=== PATIENT | female | born 1930 | race Caucasian/White ===

== ENCOUNTER 2016-09-11 18:53 | Emergency (ER) | payer OTHER, BC ==
[~2016-09-11] VITALS: Ht 172.7 cm; Wt 85.9 kg
[~2016-09-11 18:53] MED LIST: ALBU1AER9 INH; ASCO500T16 PO; MULT-506 PO; PANT40TA PO
[2016-09-11 19:07] VITALS: TEMP 36.6; Ht 172.7 cm; Wt 85.9 kg
[2016-09-11] MEDS ORDERED: ALUMINUM/MAGNESIUM/SIMETH (MAALOX MAX) 30 ML UDC PO STA (19:42)
[2016-09-11] MEDS ORDERED: LOSARTAN POTASSIUM 50 MG TAB PO ONE (19:45)
--- NOTE | 2016-09-11 19:52 | EMERGENCY ROOM VISIT NOTE ---
History Report prepared by Juan: Oksana Hannon Under the Supervision of: Dr. Linden Hale M.D. First contact with patient: 19:35 Chief Complaint: ABDOMINAL PAIN Stated Complaint: ABD PAIN History of Present Illness The patient is a 85 year old female who presents to the Emergency Room with complaints of intermittent abdominal pains for the past few weeks. She notes that she has been belching very often and experiencing abdominal pain that she rates as an 8/10 in severity. Vegetables, such as broccoli and cauliflower, exacerbate her symptoms. The patient saw her PCP 2 weeks ago for these symptoms and was started on Prilosec. She has been taking this medication as prescribed, but states that it is not helping. She has also been taking TUMS and Gas-X. The Gas-X helps slightly. She has been having normal bowel movements. The patient denies vomiting, diarrhea, fever, chills, and urinary symptoms. She notes a history of a bowel rupture. Source of History: patient Onset: a few weeks ago Position: abdomen Symptom Intensity: 8/10 Timing: intermittent Modifying Factors (Worsening): eating (vegetables) Modifying Factors (Relieving): other (Gas-X) Associated Symptoms: + abdominal pain, No chills, No diarrhea, No fevers, No urinary symptoms, No vomiting Note: Pt notes frequent belching. Review of Systems All systems have been listed, reviewed, and are negative other than those previously mentioned. Please see Additional Medical History Sheet. Past Medical & Surgical Medical Problems: (1) Asthma, Unspecified (2) Headache (3) History Of Tobacco Use (4) Hypertension Nos (5) Nosebleed (6) Obstruction of bowel (7) Restless Legs Syndrome Family History Non-pertinent due to advanced age. Social History Smoking Status: Former Smoker Marital Status: Housing Status: lives alone Occupation Status: retired Current/Historical Medications Scheduled Losartan Potassium (Cozaar), 50 MG PO DAILY Omeprazole (Prilosec), 20 MG PO DAILY Scheduled PRN Albuterol (Ventolin Hfa), 2 PUFFS INH Q4 PRN for Shortness of Breath Dicyclomine Hcl (Bentyl), 1 CAP PO QID PRN for abdominal pain Allergies Coded Allergies: Alendronate (Unverified Adverse Reaction, Severe, VERY ILL, 09/11/16) Physical Exam Vital Signs Date Time Temp Pulse Resp B/P Pulse Ox O2 Delivery O2 Flow Rate FiO2 09/12/16 00:26 82 18 193/88 93 Room Air 09/11/16 23:47 81 18 145/76 94 Room Air 09/11/16 23:21 77 09/11/16 22:01 214/107 09/11/16 21:10 80 21 93 09/11/16 21:05 78 19 94 09/11/16 20:35 79 14 93 09/11/16 20:30 234/120 09/11/16 20:28 83 20 92 09/11/16 20:23 82 15 93 09/11/16 20:06 222/123 09/11/16 19:53 19 09/11/16 19:25 91 09/11/16 19:23 90 29 09/11/16 19:18 230/120 09/11/16 19:17 230/120 09/11/16 19:07 36.6 93 18 200/106 95 Room Air Physical Exam GENERAL: Patient awake, alert, oriented x 3. Patient follows commands. Patient does not appear toxic. Patient is adequately hydrated and well- nourished. SKIN: No erythema, pallor, cyanosis or rash HEENT: Normal head, pupils equal, reactive to light and accommodation. Ears normal. Oral cavity and posterior pharynx appear normal. Neck: Without adenopathy, no neck vein distention. LUNGS: Clear to auscultation. No wheezes, no rales, no rhonchi. HEART: No murmurs. No gallops. No rubs ABDOMEN: Nontender, bowel sounds increased, well-healed lower abdominal scar. No masses, no rebound, no hepatomegaly or splenomegaly. EXTREMITIES: No signs of trauma. No pedal or pretibial edema. No calf or thigh tenderness. NEUROLOGIC: Cranial nerves II-XII within normal limits. No gross motor sensory function deficits. Medical Decision & Procedures ER Provider Diagnostic Interpretation: Radiology results as stated below per my review and radiologist interpretation: KUB CLINICAL HISTORY: Generalized abdominal pain. FINDINGS: 2 AP supine abdominal radiographs are correlated with abdominal CT dated 09/02/2014. There are nonspecific mildly distended and gas-filled loops of small bowel. There is no radiographic evidence of high-grade bowel obstruction, as gas and stool are noted throughout the colon. No evidence of intraperitoneal free air is seen on these supine images. There are no abnormal abdominal calcifications. Cholecystectomy clips are identified in the right upper quadrant. Numerous phleboliths are observed in the pelvis. The skeletal structures are osteopenic. Moderate lumbosacral spondylosis is observed. The bony pelvis appears intact. IMPRESSION: 1. There is no radiographic evidence of high-grade bowel obstruction. Gas and stool are noted throughout the colon. 2. There are mildly distended gas-filled loops of small bowel. This is nonspecific, and could represent a nonspecific enteritis. Clinical correlation will be required. Electronically signed by: Duncan Blair M.D. 09/11/2016 9:40 PM Dictated Date/Time: 09/11/2016 9:37 PM Laboratory Results 09/11/16 20:00 Red Blood Count 4.78, Mean Corpuscular Volume 90.8, Mean Corpuscular Hemoglobin 29.3, Mean Corpuscular Hemoglobin Concent 32.3, Mean Platelet Volume 10.6, Neutrophils (%) (Auto) 67.3, Lymphocytes (%) (Auto) 20.7, Monocytes (%) (Auto) 10.7, Eosinophils (%) (Auto) 0.7, Basophils (%) (Auto) 0.2, Neutrophils # (Auto ) 3.63, Lymphocytes # (Auto) 1.12, Monocytes # (Auto) 0.58, Eosinophils # (Auto ) 0.04, Basophils # (Auto) 0.01 09/11/16 20:00 Test 09/11/16 00:00 09/11/16 20:00 Urine Color YELLOW Urine Appearance CLEAR (CLEAR) Urine pH 7.5 (4.5-7.5) Urine Specific [place] 1.010 (1.000-1.030) Urine Protein NEG (NEG) Urine Glucose (UA) NEG (NEG) Urine Ketones NEG (NEG) Urine Occult Blood TRACE (NEG) Urine Nitrite NEG (NEG) Urine Bilirubin NEG (NEG) Urine Urobilinogen POS (NEG) Urine Leukocyte Esterase TRACE (NEG) Urine WBC (Auto) 1-5 /hpf (0-5) Urine RBC (Auto) 5-10 /hpf (0-4) Urine Hyaline Casts (Auto) 0 /lpf (0-5) Urine Epithelial Cells (Auto) 5-10 /lpf (0-5) Urine Bacteria (Auto) NEG (NEG) White Blood Count 5.40 K/uL (4.8-10.8) Red Blood Count 4.78 M/uL (4.2-5.4) Hemoglobin 14.0 g/dL (12.0-16.0) Hematocrit 43.4 % (37-47) Mean Corpuscular Volume 90.8 fL (80-100) Mean Corpuscular Hemoglobin 29.3 pg (25-34) Mean Corpuscular Hemoglobin Concent 32.3 g/dl (32-36) Platelet Count 156 K/uL (130-400) Mean Platelet Volume 10.6 fL (7.4-10.4) Neutrophils (%) (Auto) 67.3 % Lymphocytes (%) (Auto) 20.7 % Monocytes (%) (Auto) 10.7 % Eosinophils (%) (Auto) 0.7 % Basophils (%) (Auto) 0.2 % Neutrophils # (Auto) 3.63 K/uL (1.4-6.5) Lymphocytes # (Auto) 1.12 K/uL (1.2-3.4) Monocytes # (Auto) 0.58 K/uL (0.11-0.59) Eosinophils # (Auto) 0.04 K/uL (0-0.5) Basophils # (Auto) 0.01 K/uL (0-0.2) RDW Standard Deviation 47.7 fL (36.4-46.3) RDW Coefficient of Variation 14.3 % (11.5-14.5) Immature Granulocyte % (Auto) 0.4 % Immature Granulocyte # (Auto) 0.02 K/uL (0.00-0.02) Anion Gap 4.0 mmol/L (3-11) Est Creatinine Clear Calc Drug Dose 63.5 ml/min Estimated GFR () 86.4 Estimated GFR (Non- 74.6 BUN/Creatinine Ratio 16.2 (10-20) Calcium Level 8.9 mg/dl (8.5-10.1) Total Bilirubin 0.6 mg/dl (0.2-1) Aspartate Amino Transf (AST/SGOT) 18 U/L (15-37) Alanine Aminotransferase (ALT/SGPT) 20 U/L (12-78) Alkaline Phosphatase 87 U/L (45-117) Total Protein 7.1 gm/dl (6.4-8.2) Albumin 3.5 gm/dl (3.4-5.0) Globulin 3.6 gm/dl (2.5-4.0) Albumin/Globulin Ratio 1.0 (0.9-2) Laboratory results as stated above per my review. Medications Administered Medications (Trade) Dose Ordered Sig/Bradley Route Start Time Stop Time Status Last Admin Dose Admin Losartan Potassium (coZAAR TAB) 50 mg ONE ONCE PO 09/11/16 19:45 09/11/16 19:48 DC 09/11/16 20:04 50 MG Al Hydrox/Mg Hydrox/Simethicone (Maalox Max Susp) 30 ml NOW STAT PO 09/11/16 19:42 09/11/16 19:48 DC 09/11/16 20:04 30 ML Lorazepam (Ativan Inj) 1 mg NOW STAT IV 09/11/16 22:49 09/11/16 22:52 DC 09/11/16 22:59 1 MG Dicyclomine HCl (Bentyl Tab) 20 mg ONE ONCE PO 09/11/16 23:00 09/11/16 23:01 DC 09/11/16 23:08 20 MG ECG Indication: abdominal pain Rate (beats per minute): 89 Rhythm: normal sinus Findings: no acute ischemic change, no ectopy ED Course 1935: Past medical records reviewed. The patient was evaluated in room B5. A complete history and physical examination was performed. 1941: Maalox Max Susp 30 ml PO 1944: Losartan Potassium 50 mg PO 2240: I reassessed the patient. Her blood pressure is still elevated and she is upset and anxious. 2248: Lorazepam 1 mg IV 0: Bentyl 20 mg PO 2338: Upon reevaluation the patient is groggy after receiving medications. Her BP coming down. Her pulse ox also dropped with the medications and she was placed on NCO2 0031: I reassessed the patient at this time. She is feeling better and resting comfortably. I discussed the results and treatment plan with the patient. I answered all pertaining questions that she had. She expressed understanding and verbalized agreement. The patient will be discharged home. Medical Decision Differential diagnoses includes bowel obstruction, ulcerative colitis, IBS, intestinal spasm. The patient has hyperactive bowel sounds. KUB reveals increased loops of gas but no definite bowel obstruction. The patient has been moving her bowels. Patient also had significant elevation of her blood pressure. She was given her normal losartan which she had not yet taken. Later she was given some Ativan to help decrease her anxiety and blood pressure. Patient was given 20 mg of Bentyl which she will continue at home. Impression Primary Impression: Spasm of bowel Additional Impression: Hypertension Scribe Attestation The scribe's documentation has been prepared under my direction and personally reviewed by me in its entirety. I confirm that the note above accurately reflects all work, treatment, procedures, and medical decision making performed by me. Departure Information Dispostion Home / Self-Care Prescriptions Dicyclomine Hcl (BENTYL) 10 Mg Cap 1 CAP PO QID Y for abdominal pain, #30 CAP 1 Refill Prov: Linden Hale M.D. 09/12/16 Referrals Trace Singleton D.O. (PCP) Forms HOME CARE DOCUMENTATION FORM, IMPORTANT VISIT INFORMATION Patient Instructions My [facility] Additional Instructions 10 mg of Bentyl every 6 hours as needed for abdominal pain. Continue all of your current medications as prescribed. Call your family doctor tomorrow morning for an appointment within the next 5 days. Return here sooner if your abdominal pain gets worse or you begin to vomit. Problem Qualifiers Additional Impression: Hypertension Hypertension type: unspecified secondary hypertension Qualified Codes: I15.9 - Secondary hypertension, unspecified
[2016-09-11 20:14] LABS: BASO % 0.2 %; BASO ABS # 0.01 K/uL (0-0.2); COMPLETE YES; EOS % 0.7 %; HEMATOCRIT 43.4 % (37-47); IG% 0.4 %; LYMPH % 20.7 %; LYMPH ABS # 1.12 K/uL (1.2-3.4); MEAN CELL VOLUME 90.8 fL (80-100); MEAN CORPUSCULAR HEMOGLOBIN 29.3 pg (25-34); MEAN CORPUSCULAR HGB CONC 32.3 g/dl (32-36); MEAN PLATELET VOLUME 10.6 fL (7.4-10.4); MONO % 10.7 %; NEUT % 67.3 %; PLATELET COUNT 156 K/uL (130-400); RED BLOOD COUNT 4.78 M/uL (4.2-5.4)
[2016-09-11 20:34] LABS: BUN/CREATININE RATIO 16.2 (10-20); CALCIUM 8.9 mg/dl (8.5-10.1); CREATININE 0.73 mg/dl (0.60-1.20); POTASSIUM 3.4 mmol/L (3.5-5.1)
[2016-09-11 21:28] LABS: URINE APPEARANCE CLEAR (CLEAR); URINE BILIRUBIN NEG (NEG); URINE COLOR YELLOW; URINE NITRITE NEG (NEG); URINE PH 7.5 (4.5-7.5); UROBILINOGEN POS (NEG); ZZUR CULT IF INDIC CLEAN CATCH NO
[2016-09-11 21:38] LABS: MANUAL MICROSCOPIC REQUIRED? NO; REVIEW REQ? NO
--- NOTE | 2016-09-11 21:42 | DIAGNOSTIC IMAGING REPORT ---
KUB CLINICAL HISTORY: Generalized abdominal pain. FINDINGS: 2 AP supine abdominal radiographs are correlated with abdominal CT dated 09/02/2014. There are nonspecific mildly distended and gas-filled loops of small bowel. There is no radiographic evidence of high-grade bowel obstruction, as gas and stool are noted throughout the colon. No evidence of intraperitoneal free air is seen on these supine images. There are no abnormal abdominal calcifications. Cholecystectomy clips are identified in the right upper quadrant. Numerous phleboliths are observed in the pelvis. The skeletal structures are osteopenic. Moderate lumbosacral spondylosis is observed. The bony pelvis appears intact. IMPRESSION: 1. There is no radiographic evidence of high-grade bowel obstruction. Gas and stool are noted throughout the colon. 2. There are mildly distended gas-filled loops of small bowel. This is nonspecific, and could represent a nonspecific enteritis. Clinical correlation will be required. Electronically signed by: Duncan Blair M.D. 09/11/2016 9:40 PM Dictated Date/Time: 09/11/2016 9:37 PM
[2016-09-11] MEDS ORDERED: LORAZEPAM 2 MG/ML 1 ML VIAL IV STA (22:49)
[2016-09-11] MEDS ORDERED: DICYCLOMINE HCL 20 MG TAB PO ONE (23:00)
[2016-09-12 00:26] VITALS: BP 193/88; PULSE 82; O2SAT 93
[2016-09-12] MEDS ORDERED: DICY10CA55 PO (00:43)
== END 2016-09-12 00:50 | disposition home or self-care (01) ==
LOC: C.EDB 18:54
DX: K59.8 Other specified functional intestinal disorders (principal); I10 Essential (primary) hypertension; K56.60 Unspecified intestinal obstruction; J45.909 Unspecified asthma, uncomplicated; Z87.891 Personal history of nicotine dependence; G25.81 Restless legs syndrome; Z79.899 Other long term (current) drug therapy; Z88.8 Allergy status to other drugs, medicaments and biological substances

== ENCOUNTER 2016-10-11 15:03 | Emergency (ER) | payer OTHER, BC ==
[~2016-10-11] VITALS: Ht 172.7 cm; Wt 84.0 kg
[~2016-10-11 15:03] MED LIST changes: -ALBU1AER9 INH; -ASCO500T16 PO; +DICY10CA55 PO; -MULT-506 PO; -PANT40TA PO
[2016-10-11 15:12] VITALS: TEMP 36.5; Ht 172.7 cm; Wt 84.0 kg
[2016-10-11] MEDS ORDERED: LOSARTAN POTASSIUM 50 MG TAB PO STA (15:25)
[2016-10-11 15:34] VITALS: O2SAT 93
[2016-10-11 15:42] LABS: BASO % 0.2 %; BASO ABS # 0.01 K/uL (0-0.2); COMPLETE YES; EOS % 0.8 %; HEMATOCRIT 45.5 % (37-47); IG% 0.2 %; LYMPH ABS # 0.96 K/uL (1.2-3.4); MEAN CELL VOLUME 91.5 fL (80-100); MEAN CORPUSCULAR HGB CONC 32.7 g/dl (32-36); MEAN PLATELET VOLUME 10.4 fL (7.4-10.4); MONO % 11.7 %; NEUT % 67.1 %; PLATELET COUNT 161 K/uL (130-400); RED BLOOD COUNT 4.97 M/uL (4.2-5.4)
[2016-10-11 15:57] LABS: ALT/SGPT 15 U/L (12-78); AST/SGOT 15 U/L (15-37); BLOOD UREA NITROGEN 13 mg/dl (7-18); BUN/CREATININE RATIO 17.1 (10-20); CALCIUM 8.7 mg/dl (8.5-10.1); CARBON DIOXIDE 32 mmol/L (21-32); CHLORIDE 105 mmol/L (98-107); CREATININE 0.77 mg/dl (0.60-1.20); GLUCOSE 97 mg/dl (70-99); POTASSIUM 3.6 mmol/L (3.5-5.1); SODIUM 143 mmol/L (136-145)
[2016-10-11 16:00] LABS: PARTIAL THROMBOPLASTIN RATIO 1.2; PROTHROMBIN TIME (PATIENT) 10.7 SECONDS (9.0-12.0)
[2016-10-11 16:09] LABS: ALKALINE PHOSPHATASE 88 U/L (45-117)
--- NOTE | 2016-10-11 16:17 | DIAGNOSTIC IMAGING REPORT ---
SINGLE VIEW CHEST CLINICAL HISTORY: Hypertension. FINDINGS: An AP, portable, upright chest radiograph is compared to study dated 01/22/2012. The examination is degraded by portable technique and patient rotation. The heart is mildly enlarged and there is atherosclerotic calcification of the thoracic aorta. The pulmonary vasculature is noncongested. Enlargement the central pulmonary arteries indicates pulmonary hypertension. Emphysema with chronic interstitial thickening/nodularity is similar to previous. No airspace consolidation or large pleural effusion is identified. No pneumothorax is seen. The skeletal structures are osteopenic. Degenerative change is seen in the shoulders and thoracic spine. IMPRESSION: Cardiomegaly and emphysema with no acute cardiopulmonary abnormality. Electronically signed by: Duncan Blair M.D. 10/11/2016 4:16 PM Dictated Date/Time: 10/11/2016 4:15 PM
--- NOTE | 2016-10-11 16:30 | DIAGNOSTIC IMAGING REPORT ---
CT SCAN OF THE BRAIN WITHOUT IV CONTRAST CLINICAL HISTORY: Hypertension. COMPARISON STUDY: CT of the brain dated 01/23/2012. TECHNIQUE: Unenhanced axial CT scan of the brain is performed from the vertex to the skull base. CT DOSE: 537.48 mGy.cm FINDINGS: Brain parenchyma: There are age-related involutional changes noting moderate to advanced confluent subcortical and periventricular microangiopathic change. There is no hemorrhage, mass effect, or evidence of acute territorial ischemia by CT criteria. [place]-white matter is preserved. No extra-axial fluid collection is seen. Ventricles, sulci, cisterns: Prominent secondary to involutional change. Intracranial vasculature: There is atherosclerotic calcification of the cavernous carotid and vertebral arteries. Calvarium: Unremarkable. Sinuses and mastoids: The visualized paranasal sinuses are clear. The mastoid air cells are well pneumatized. Orbits: The bony orbits are grossly intact. IMPRESSION: Senescent changes as above with no hemorrhage, mass effect, or evidence of acute territorial ischemia by CT criteria. Electronically signed by: Duncan Blair M.D. 10/11/2016 4:29 PM Dictated Date/Time: 10/11/2016 4:26 PM
[2016-10-11] MEDS ORDERED: ACET-1311 PO (16:40)
[2016-10-11] MEDS ORDERED: CALC500C3 PO (16:40)
[2016-10-11] MEDS ORDERED: FELO1TAB7 PO (16:40)
[2016-10-11] MEDS ORDERED: LOSA50TA6 PO (16:55)
[2016-10-11 17:34] VITALS: BP 178/87; PULSE 97; O2SAT 93
[2016-10-11] MEDS ORDERED: PRVHFAIN INH (20:19)
[2016-10-11] MEDS ORDERED: PRLSR20 PO (20:19)
--- NOTE | 2016-10-11 23:17 | EMERGENCY ROOM VISIT NOTE ---
History Report prepared by Juan: Ilir Fernandez Under the Supervision of: Dr. Huey Joshi M.D. First contact with patient: 15:21 Chief Complaint: HYPERTENSION Stated Complaint: ELEVATED BP, BLURRY VISION History of Present Illness The patient is a 85 year old female who presents to the Emergency Room with complaints of persistently high blood pressure occurring today. She checked her blood pressure which was 200s/100s. She also complains of bilateral blurry vision occurring for the past week or two. She has a history of hypertension. A few weeks ago, the patient's prescribed medications were changed and her Metoprolol dosage was increased. She also complains of some chronic shortness of breath and denies any changes. She has a history of asthma. The patient currently denies any pain. Pt denies LOC, headache, fevers, chills, diaphoresis, neck pain, chest pain, nausea, vomiting, abdominal pain, back pain, melena, hematochezia, urinary symptoms, numbness, weakness, lymphadenopathy, rash, or other complaints. Source of History: patient Onset: today Position: other (global) Symptom Intensity: No pain currently Quality: other (high blood pressure) Timing: other (persistent) Associated Symptoms: + SOB (chronic) Review of Systems See HPI for pertinent positives and negatives. A total of ten systems were reviewed and were otherwise negative. Past Medical & Surgical Medical Problems: (1) Asthma, Unspecified (2) Headache (3) History Of Tobacco Use (4) Hypertension (5) Hypertension (6) Hypertension (7) Hypertension Nos (8) Nosebleed (9) Nosebleed (10) Obstruction of bowel (11) Restless Legs Syndrome Family History Diabetes mellitus Gallbladder disease Hypertension Social History Smoking Status: Never Smoker Marital Status: Housing Status: lives alone Occupation Status: retired Current/Historical Medications Scheduled Calcium Carbonate (Tums), 500 MG PO PRN Felodipine (Plendil), 2.5 MG PO BID Losartan Potassium (Cozaar), 100 MG PO DAILY Omeprazole (Prilosec), 20 MG PO DAILY Scheduled PRN Acetaminophen (Tylenol), 650 MG PO Q8 PRN for Headache or Pain Albuterol (Ventolin Hfa), 2 PUFFS INH Q4 PRN for Shortness of Breath Allergies Coded Allergies: Alendronate (Unverified Adverse Reaction, Severe, VERY ILL, 09/11/16) Physical Exam Vital Signs Date Time Temp Pulse Resp B/P (MAP) Pulse Ox O2 Delivery O2 Flow Rate FiO2 10/11/16 17:34 93 211/93 93 Room Air 98 194/94 97 178/87 10/11/16 17:33 99 92 10/11/16 17:26 184/92 10/11/16 16:42 82 18 192/103 93 Room Air 10/11/16 16:06 88 172/106 10/11/16 15:48 90 10/11/16 15:34 93 Room Air 10/11/16 15:34 93 Room Air 10/11/16 15:12 36.5 90 22 156/87 89 Room Air Physical Exam GENERAL: Awake, alert, well-appearing, in no distress HENT: Normocephalic, atraumatic. Oropharynx unremarkable. EYES: Normal conjunctiva. Sclera non-icteric. NECK: Supple. No nuchal rigidity. FROM. No JVD. RESPIRATORY: Clear to auscultation. CARDIAC: Regular rate, normal rhythm. Extremities warm and well perfused. Pulses equal. ABDOMEN: Soft, non-distended. No tenderness to palpation. No rebound or guarding. No masses. RECTAL: Deferred. MUSCULOSKELETAL: Chest examination reveals no tenderness. The back is symmetrical on inspection without obvious abnormality. There is no CVA tenderness to palpation. No joint edema. LOWER EXTREMITIES: Calves are equal size bilaterally and non-tender. Trace pedal edema. No discoloration. NEURO: Normal sensorium. No sensory or motor deficits noted. SKIN: No rash or jaundice noted. Medical Decision & Procedures ER Provider Diagnostic Interpretation: X-ray: Per my interpretation, radiologist review. SINGLE VIEW CHEST CLINICAL HISTORY: Hypertension. FINDINGS: An AP, portable, upright chest radiograph is compared to study dated 01/22/2012. The examination is degraded by portable technique and patient rotation. The heart is mildly enlarged and there is atherosclerotic calcification of the thoracic aorta. The pulmonary vasculature is noncongested. Enlargement the central pulmonary arteries indicates pulmonary hypertension. Emphysema with chronic interstitial thickening/nodularity is similar to previous. No airspace consolidation or large pleural effusion is identified. No pneumothorax is seen. The skeletal structures are osteopenic. Degenerative change is seen in the shoulders and thoracic spine. IMPRESSION: Cardiomegaly and emphysema with no acute cardiopulmonary abnormality. Electronically signed by: Duncan Blair M.D. 10/11/2016 4:16 PM Dictated Date/Time: 10/11/2016 4:[address]: Radiology results as stated below per my review and radiologist interpretation CT SCAN OF THE BRAIN WITHOUT IV CONTRAST CLINICAL HISTORY: Hypertension. COMPARISON STUDY: CT of the brain dated 01/23/2012. TECHNIQUE: Unenhanced axial CT scan of the brain is performed from the vertex to the skull base. CT DOSE: 537.48 mGy.cm FINDINGS: Brain parenchyma: There are age-related involutional changes noting moderate to advanced confluent subcortical and periventricular microangiopathic change. There is no hemorrhage, mass effect, or evidence of acute territorial ischemia by CT criteria. [place]-white matter is preserved. No extra-axial fluid collection is seen. Ventricles, sulci, cisterns: Prominent secondary to involutional change. Intracranial vasculature: There is atherosclerotic calcification of the cavernous carotid and vertebral arteries. Calvarium: Unremarkable. Sinuses and mastoids: The visualized paranasal sinuses are clear. The mastoid air cells are well pneumatized. Orbits: The bony orbits are grossly intact. IMPRESSION: Senescent changes as above with no hemorrhage, mass effect, or evidence of acute territorial ischemia by CT criteria. Electronically signed by: Duncan Blair M.D. 10/11/2016 4:29 PM Dictated Date/Time: 10/11/2016 4:26 PM Laboratory Results 10/11/16 15:31 Red Blood Count 4.97, Mean Corpuscular Volume 91.5, Mean Corpuscular Hemoglobin 30.0, Mean Corpuscular Hemoglobin Concent 32.7, Mean Platelet Volume 10.4, Neutrophils (%) (Auto) 67.1, Lymphocytes (%) (Auto) 20.0, Monocytes (%) (Auto) 11.7, Eosinophils (%) (Auto) 0.8, Basophils (%) (Auto) 0.2, Neutrophils # (Auto ) 3.22, Lymphocytes # (Auto) 0.96, Monocytes # (Auto) 0.56, Eosinophils # (Auto ) 0.04, Basophils # (Auto) 0.01 10/11/16 15:31 Test 10/11/16 15:31 White Blood Count 4.80 K/uL (4.8-10.8) Red Blood Count 4.97 M/uL (4.2-5.4) Hemoglobin 14.9 g/dL (12.0-16.0) Hematocrit 45.5 % (37-47) Mean Corpuscular Volume 91.5 fL (80-100) Mean Corpuscular Hemoglobin 30.0 pg (25-34) Mean Corpuscular Hemoglobin Concent 32.7 g/dl (32-36) Platelet Count 161 K/uL (130-400) Mean Platelet Volume 10.4 fL (7.4-10.4) Neutrophils (%) (Auto) 67.1 % Lymphocytes (%) (Auto) 20.0 % Monocytes (%) (Auto) 11.7 % Eosinophils (%) (Auto) 0.8 % Basophils (%) (Auto) 0.2 % Neutrophils # (Auto) 3.22 K/uL (1.4-6.5) Lymphocytes # (Auto) 0.96 K/uL (1.2-3.4) Monocytes # (Auto) 0.56 K/uL (0.11-0.59) Eosinophils # (Auto) 0.04 K/uL (0-0.5) Basophils # (Auto) 0.01 K/uL (0-0.2) RDW Standard Deviation 48.5 fL (36.4-46.3) RDW Coefficient of Variation 14.4 % (11.5-14.5) Immature Granulocyte % (Auto) 0.2 % Immature Granulocyte # (Auto) 0.01 K/uL (0.00-0.02) Prothrombin Time 10.7 SECONDS (9.0-12.0) Prothromb Time International Ratio 1.0 (0.9-1.1) Activated Partial Thromboplast Time 30.3 SECONDS (21.0-31.0) Partial Thromboplastin Ratio 1.2 Anion Gap 6.0 mmol/L (3-11) Est Creatinine Clear Calc Drug Dose 59.6 ml/min Estimated GFR () 81.0 Estimated GFR (Non- 69.9 BUN/Creatinine Ratio 17.1 (10-20) Calcium Level 8.7 mg/dl (8.5-10.1) Total Bilirubin 0.7 mg/dl (0.2-1) Direct Bilirubin 0.3 mg/dl (0-0.2) Aspartate Amino Transf (AST/SGOT) 15 U/L (15-37) Alanine Aminotransferase (ALT/SGPT) 15 U/L (12-78) Alkaline Phosphatase 88 U/L (45-117) Troponin I < 0.015 ng/ml (0-0.045) Total Protein 7.5 gm/dl (6.4-8.2) Albumin 3.7 gm/dl (3.4-5.0) Lipase 82 U/L (73-393) Thyroid Stimulating Hormone (TSH) 2.100 uIu/ml (0.300-4.500) Laboratory results reviewed by me Medications Administered Medications (Trade) Dose Ordered Sig/Bradley Route Start Time Stop Time Status Last Admin Dose Admin Losartan Potassium (coZAAR TAB) 100 mg NOW STAT PO 10/11/16 15:25 10/11/16 15:34 DC 10/11/16 16:05 100 MG ECG Indication: other (High blood pressure) Rate (beats per minute): 82 Rhythm: normal sinus Findings: no acute ischemic change, no ectopy ED Course 1521: The patient was evaluated in room B03B. A complete history and physical exam was performed. Medication Reconciliation: I attest that I have personally reviewed the patient' s current medication list 1525: Losartan Potassium 100 mg PO 1716: The patient will perform an ambulatory trial. 1720: I reevaluated the patient who is feeling better. 1739: The patient successfully performed the ambulatory trial. 1743: I performed record review which showed the patient's blood pressure has been significantly elevated over the last year. 1745: I reevaluated the patient. Discussed results and discharge instructions: She verbalized understanding and agreement. The patient is ready for discharge. Blood pressure screening: Patient was found to have an elevated blood pressure and was referred to their primary doctor for recheck and further treatment. Medical Decision Prior records/ancillary studies reviewed regarding the history above. Triage Nursing notes reviewed and agree them. Additional history obtained from the family. The patient's history was concerning for hypertension. Differential diagnosis: Etiologies such as hypertensive urgency, hypertensive emergency, benign hypertension, cardiovascular pathology, pheochromocytoma, electrolyte abnormality, renal disease, endorgan damage, as well as others were entertained. Physical examination: As above. ER treatment provided: The patient was given her daily losartan dose. On reassessment the patient felt well. Diagnostic interpretation by me: The electrocardiogram was negative for pathologic change. The labs revealed an unremarkable CBC, coags, chemistry panel, LFTs, lipase, troponin, and TSH. Imaging studies: Chest x-ray and CT scan as above The patient is doing very well. Orthostatic testing was unremarkable. Ambulatory pulse ox was unremarkable. The patient had one brief lobe measurement on her pulse oximetry however on multiple rechecks and with ambulation this was normal. At first she may have been spurious. The patient was doing very well. Her son does note some dietary indiscretion regarding sodium intake. Record review indicates the patient has had blood pressure measurements this high or even higher for several years. She recently had her medications increased. I did attempt to contact her primary physician but he was unavailable as the office had apparently closed. I discussed conservative management with the patient and she felt comfortable. If she worsens in any way she will be back. By the evaluation outlined above emergent etiologies such as hypertensive emergency, pheochromocytoma, endorgan damage, cardiac ischemia, aortic dissection, pulmonary embolism, pneumonia, pneumothorax, infections, gastrointestinal, as well as others were deemed relatively unlikely. The patient was informed about the findings as listed above. All questions were answered and she was very pleased with the treatment. Return instructions were outlined and the patient was discharged in stable condition. Outpatient prescription management: No change Referral: The patient was referred back to her primary care physician for follow-up 3 days for a recheck of the current condition. The chart was completed utilizing [employer] Speech voice recognition software. Grammatical errors, random word insertions, pronoun errors, and incomplete sentences are an occasional consequence of this system due to software limitations, ambient noise, and hardware issues. Any formal questions or concerns about the content, text, or information contained within the body of this dictation should be directly addressed to the physician for clarification. Impression Primary Impression: Hypertension Scribe Attestation The scribe's documentation has been prepared under my direction and personally reviewed by me in its entirety. I confirm that the note above accurately reflects all work, treatment, procedures, and medical decision making performed by me. Departure Information Dispostion Home / Self-Care Referrals Trace Singleton D.O. (PCP) Forms HOME CARE DOCUMENTATION FORM, IMPORTANT VISIT INFORMATION, WORK / SCHOOL INSTRUCTIONS Patient Instructions Hypertension De, My [facility] Additional Instructions Continue current medications. Watch salty food intake. Follow-up with Dr. Singleton's office on Friday for a recheck. Return to the ER for chest pain, headache, passing out, difficulty breathing, fevers, numbness, tingling, worsening of your condition, or as needed.
== END 2016-10-11 18:00 | disposition home or self-care (01) ==
LOC: C.EDB 15:05
DX: I10 Essential (primary) hypertension (principal); R06.02 Shortness of breath; H53.8 Other visual disturbances; J45.909 Unspecified asthma, uncomplicated; Z87.891 Personal history of nicotine dependence; G25.81 Restless legs syndrome; Z83.3 Family history of diabetes mellitus; Z82.49 Family history of ischemic heart disease and other diseases of the circulatory system; I51.7 Cardiomegaly; J43.9 Emphysema, unspecified

== ENCOUNTER → 2017-09-10 | Outpatient (CLI) | payer OTHER, BC ==
[~2017-09-10] MED LIST changes: +ACET-1311 PO; +CALC500C3 PO; -DICY10CA55 PO; +FELO1TAB7 PO; +LOSA50TA6 PO; +OPTIRAY 320 IV PRN; +PRLSR20 PO; +PRVHFAIN INH
--- NOTE | 2017-09-10 16:47 | DIAGNOSTIC IMAGING REPORT ---
CT SCAN OF THE ABDOMEN AND PELVIS WITH IV CONTRAST CLINICAL HISTORY: Abdominal distention. Generalized abdominal pain. COMPARISON STUDY: Abdominal CT dated 09/02/2014. TECHNIQUE: Following the IV administration of 116 cc of Optiray 320, CT scan of the abdomen and pelvis is performed from the lung bases to the proximal femora. Images are reviewed in the axial, sagittal, and coronal planes. IV contrast was administered without complication. A dose lowering technique was utilized adhering to the principles of ALARA. CT DOSE: 321.26 mGy.cm FINDINGS: Lung bases: The heart is normal in size and without pericardial effusion. The coronary arteries and aortic valve leaflets are calcified. Scarring/atelectasis are present at both lung bases. There is no airspace consolidation typical for pneumonia or pleural effusion. There is a tiny hiatal hernia. Liver: The contrast-enhanced liver is normal in size, contour, and attenuation. There is [id number] central intrahepatic biliary ductal dilatation, likely related to previous cholecystectomy. The hepatic veins and portal veins are patent. Gallbladder: Surgically absent noting clips in the gallbladder fossa. Spleen: Normal in size and attenuation. Pancreas: Atrophic and grossly unremarkable. Adrenal glands: A 10 mm left adrenal adenoma is unchanged from 2015. The adrenal glands are otherwise unremarkable. Kidneys: The contrast enhanced kidneys are atrophic and without hydronephrosis. The kidneys enhance symmetrically. There is a 5.7 cm cyst arising from the lower pole of the left kidney. Additional subcentimeter cortical hypodensities also likely represent cysts but are too small for definitive characterization. A 7 mm hyperdense cyst in the interpolar right kidney seen on image #147 is unchanged from 2015. Abdominal vasculature: The abdominal aorta is normal in course and caliber noting advanced atherosclerotic calcification. Bowel: There R2 large 2-lead diverticula which contain air contrast levels. The largest measures approximately 8 cm as seen on image #114. No bowel obstruction is identified. There is advanced colonic diverticulosis. Diverticular disease is also seen involving the distal small bowel. There is no convincing CT evidence of acute diverticulitis. A small bowel anastomosis is suggested in the left lower quadrant. The appendix is not clearly visualized. Peritoneum: There is no intraperitoneal free air or abdominal ascites. There is laxity of the ventral abdominal wall with diastases of the rectus musculature, protrusion of abdominal contents, and evidence of previous ventral hernia repair. No focal hernia is identified. Lymphadenopathy: None. Pelvic viscera: The bladder, uterus, and adnexa are normal as visualized. Skeletal structures: The skeletal structures are osteopenic. There is mild lumbosacral spondylosis. No lytic or blastic lesions are seen. IMPRESSION: 1. There are no acute infectious or inflammatory findings in the abdomen or pelvis. 2. There is advanced colonic diverticulosis without CT evidence of acute diverticulitis. 3. Additionally, there are numerous small bowel diverticula as well as large diverticula of the duodenum. 4. There is laxity of the ventral abdominal wall with diastases of the rectus musculature, evidence of previous ventral hernia repair, and protrusion of abdominal contents. No focal hernia is identified. 5. Additional findings as above. Electronically signed by: Duncan Blair M.D. 09/10/2017 4:46 PM Dictated Date/Time: 09/10/2017 4:37 PM
== END | disposition home or self-care (01) ==
LOC: C.CTS 13:41
PROVIDERS: ATTEND Nurse Practitioner
DX: R10.84 Generalized abdominal pain (principal); R14.0 Abdominal distension (gaseous); R68.81 Early satiety; K44.9 Diaphragmatic hernia without obstruction or gangrene

== ENCOUNTER 2017-12-31 14:22 | Inpatient (IN) | payer OTHER, BC ==
[~2017-12-31] VITALS: Ht 165.1 cm; Wt 73.8 kg
[~2017-12-31 14:22] MED LIST changes: -LOSA50TA6 PO; -OPTIRAY 320 IV PRN; -PRVHFAIN INH
--- NOTE | 2017-12-31 15:06 | EMERGENCY ROOM VISIT NOTE ---
History Report prepared by Juan: Kulwinder Nolasco Under the Supervision of: Dr. Huey Joshi M.D. First contact with patient: 14:48 Chief Complaint: REFERRED BY DOCTOR Stated Complaint: REFERRED BY DOCTOR History of Present Illness The patient is a 87 year old female with a history of Asthma who presents to the Emergency Room by referral of her PCP. The patient states x1 week ago she started to develop a chest cold. She states she went and saw her PCP who put her on Levaquin which she has had for 3 days now. The patient states today her PCP advised her to come to the ED as they were concerned about possible Pneumonia. The patient states she does have a productive cough. Pt denies LOC, headache, fevers, chills, diaphoresis, visual changes, neck pain , chest pain, nausea, vomiting, abdominal pain, back pain, melena, hematochezia , urinary symptoms, numbness, weakness, lymphadenopathy, rash, or other complaints. Source of History: patient Onset: 1 week Symptom Intensity: moderate Timing: constant, worsening Review of Systems See HPI for pertinent positives and negatives. A total of ten systems were reviewed and were otherwise negative. Constitutional: No fever, No chills, No sweats Respiratory: + cough, + sputum, + wheezing, + shortness of breath Cardiovascular: No chest pain, No edema Abdomen: No pain, No nausea, No vomiting, No diarrhea Musculoskeletal: No swelling Genitourinary - Female: No dysuria, No urinary frequency, No urinary urgency , No urinary incontinence, No urinary retention, No hematuria Integumentary: No rash Past Medical & Surgical Medical Problems: (1) Aspiration pneumonitis (2) Asthma, Unspecified (3) Headache (4) History Of Tobacco Use (5) Hypertension (6) Hypertension (7) Hypertension (8) Hypertension Nos (9) Nosebleed (10) Nosebleed (11) Obstruction of bowel (12) Restless Legs Syndrome Family History Diabetes mellitus Gallbladder disease Hypertension Social History Smoking Status: Former Smoker Marital Status: Housing Status: lives alone Occupation Status: retired Current/Historical Medications Scheduled Acetaminophen (Tylenol), 500 MG PO PRN UD [id number]-[id number]-Wnseifpkfmzbd (Gas-X Prevention), 1 CAP PO PRN Felodipine (Plendil), 10 MG PO DAILY Levofloxacin (Levaquin), 500 MG PO DAILY Losartan Potassium (Cozaar), 100 MG PO DAILY Ranitidine (Zantac), 150 MG PO BID Sertraline (Zoloft), 25 MG PO QPM Scheduled PRN Albuterol (Ventolin Hfa), 2 PUFFS INH Q4 PRN for Shortness of Breath Calcium Carbonate (Antacid) (Tums Ultra 1000), 1,000 MG PO TID PRN for ACID REFLUX Allergies Coded Allergies: Sucralfate (Verified Allergy, Severe, THROAT SWELLS, THROAT ITCHES, SEVERE COUGHING., 12/31/17) INFO FROM [employer] Alendronate (Unverified Adverse Reaction, Severe, VERY ILL, 09/11/16) Pneumococcal Vaccines (Verified Adverse Reaction, Severe, RED, SWOLLEN ARM , 12/31/17) Lisinopril (Verified Adverse Reaction, Intermediate, COUGH, 12/31/17) Physical Exam Vital Signs Date Time Temp Pulse Resp B/P (MAP) Pulse Ox O2 Delivery O2 Flow Rate FiO2 12/31/17 15:52 99 Nasal Cannula 4.0 12/31/17 14:58 99 Nasal Cannula 4.0 12/31/17 14:58 99 Nasal Cannula 4.0 12/31/17 14:42 68 12/31/17 14:28 36.4 76 19 156/78 89 Room Air Physical Exam GENERAL: Awake, alert, mildly ill appearing, in no distress HENT: Normocephalic, atraumatic. Oropharynx unremarkable. EYES: Normal conjunctiva. Sclera non-icteric. NECK: Supple. No nuchal rigidity. FROM. No masses. RESPIRATORY: Scattered rhonchi with scant wheezing noted. Normal respiratory effort. CARDIAC: Normal rate. Normal rhythm. No murmurs. No rubs. Extremities warm and well perfused. Pulses equal. No JVD. GI: Soft, non-distended. No tenderness to palpation. No rebound or guarding. No masses. RECTAL: Deferred. MUSCULOSKELETAL: Atraumatic. Chest examination reveals no tenderness. The back is symmetrical on inspection without obvious abnormality. There is no CVA tenderness to palpation. No joint edema. LOWER EXTREMITIES: Calves are equal size bilaterally and non-tender. No edema. No discoloration. NEURO: Normal sensorium. No sensory or motor deficits noted. SKIN: No rash or jaundice noted. Medical Decision & Procedures ER Provider Diagnostic Interpretation: Radiology results as stated below per my review and radiologist interpretation: SINGLE VIEW CHEST CLINICAL HISTORY: Dyspnea. FINDINGS: An AP, portable, upright chest radiograph is compared to study dated 10/11/2016. The examination is degraded by portable technique and patient rotation. The heart is top normal for projection and there is atherosclerotic calcification of the thoracic aorta. Chronic interstitial thickening is similar to previous. There are left basilar opacities and a small left pleural effusion. The right lung is grossly clear. No pneumothorax is seen. The skeletal structures are osteopenic. The bony thorax is grossly intact. Degenerative change is noted in the shoulders and thoracic spine. IMPRESSION: There are left basilar opacities and a small left pleural effusion. This could represent atelectasis versus pneumonia/aspiration pneumonitis. Clinical correlation will be required and radiographic follow-up to resolution is recommended. Laboratory Results 12/31/17 14:53 Red Blood Count 4.30, Mean Corpuscular Volume 94.0, Mean Corpuscular Hemoglobin 30.5, Mean Corpuscular Hemoglobin Concent 32.4, Mean Platelet Volume 11.1, Neutrophils (%) (Auto) 59.5, Lymphocytes (%) (Auto) 25.8, Monocytes (%) (Auto) 13.0, Eosinophils (%) (Auto) 1.0, Basophils (%) (Auto) 0.2, Neutrophils # (Auto ) 2.42, Lymphocytes # (Auto) 1.05, Monocytes # (Auto) 0.53, Eosinophils # (Auto ) 0.04, Basophils # (Auto) 0.01 12/31/17 14:53 Test 12/31/17 14:53 12/31/17 15:15 12/31/17 15:17 White Blood Count 4.07 K/uL (4.8-10.8) Red Blood Count 4.30 M/uL (4.2-5.4) Hemoglobin 13.1 g/dL (12.0-16.0) Hematocrit 40.4 % (37-47) Mean Corpuscular Volume 94.0 fL (80-100) Mean Corpuscular Hemoglobin 30.5 pg (25-34) Mean Corpuscular Hemoglobin Concent 32.4 g/dl (32-36) Platelet Count 142 K/uL (130-400) Mean Platelet Volume 11.1 fL (7.4-10.4) Neutrophils (%) (Auto) 59.5 % Lymphocytes (%) (Auto) 25.8 % Monocytes (%) (Auto) 13.0 % Eosinophils (%) (Auto) 1.0 % Basophils (%) (Auto) 0.2 % Neutrophils # (Auto) 2.42 K/uL (1.4-6.5) Lymphocytes # (Auto) 1.05 K/uL (1.2-3.4) Monocytes # (Auto) 0.53 K/uL (0.11-0.59) Eosinophils # (Auto) 0.04 K/uL (0-0.5) Basophils # (Auto) 0.01 K/uL (0-0.2) RDW Standard Deviation 50.9 fL (36.4-46.3) RDW Coefficient of Variation 14.9 % (11.5-14.5) Immature Granulocyte % (Auto) 0.5 % Immature Granulocyte # (Auto) 0.02 K/uL (0.00-0.02) Anion Gap 8.0 mmol/L (3-11) Estimated GFR () 82.5 Estimated GFR (Non- 71.2 BUN/Creatinine Ratio 19.0 (10-20) Calcium Level 9.0 mg/dl (8.5-10.1) Total Bilirubin 0.7 mg/dl (0.2-1) Aspartate Amino Transf (AST/SGOT) 15 U/L (15-37) Alanine Aminotransferase (ALT/SGPT) 14 U/L (12-78) Alkaline Phosphatase 78 U/L (45-117) Troponin I < 0.015 ng/ml (0-0.045) Total Protein 7.5 gm/dl (6.4-8.2) Albumin 3.5 gm/dl (3.4-5.0) Globulin 4.0 gm/dl (2.5-4.0) Albumin/Globulin Ratio 0.9 (0.9-2) Venous Blood pH 7.35 (7.36-7.41) Venous Blood Partial Pressure CO2 59 mmHg (38.0-50.0) Venous Blood Partial Pressure O2 32 mmHg Venous Blood HCO3 32 mmol/L Venous Blood Oxygen Saturation 62.1 % Venous Blood Base Excess 4.5 mEq/L Bedside Lactic Acid Venous 0.93 mmol/L (0.90-1.70) Laboratory results reviewed by me Medications Administered Medications (Trade) Dose Ordered Sig/Bradley Route Start Time Stop Time Status Last Admin Dose Admin Ceftriaxone Sodium (Rocephin Inj) 1 gm NOW STAT IV 12/31/17 15:41 12/31/17 15:42 DC 12/31/17 16:04 1 GM ECG Per My Interpretation Indication: SOB/dyspnea Rate (beats per minute): 70 Rhythm: normal sinus Findings: other (No ST elevations or depressions. No PACs or PVCs) Medical Decision Triage Nursing notes reviewed. The patient's presentation and history were concerning for respiratory symptoms and hypoxia. Etiologies such as pneumonia, COPD, reactive airway disease, CHF, cardiac ischemia, pulmonary embolism, pneumothorax, musculoskeletal, infections, gastrointestinal, as well as others were entertained. the patient was evaluated. She had coarse breath sounds. She was requiring supplemental oxygen but otherwise looked well. Blood work was obtained was unremarkable. ECG did not show any ischemia. The patient had a chest x-ray performed and was concerning for a left basilar infiltrate. She had blood cultures done. VBG was unremarkable. She was given a dose of IV Rocephin. Patient was educated. Internal medicine was consulted for further evaluation and management in the hospital. Medication Reconcilliation Current Medication List: was personally reviewed by me Blood Pressure Screening Patient's blood pressure: Elevated blood pressure Blood pressure disposition: Referred to PCP Consults Consulting Physician: [facility] Returned Call: [phone] Agrees to admit the patient. Impression Primary Impression: Pneumonia Additional Impression: Hypoxia Scribe Attestation The scribe's documentation has been prepared under my direction and personally reviewed by me in its entirety. I confirm that the note above accurately reflects all work, treatment, procedures, and medical decision making performed by me. Departure Information Dispostion Being Evaluated By Hospitalist Referrals Trace Singleton D.O. (PCP) Forms HOME CARE DOCUMENTATION FORM, IMPORTANT VISIT INFORMATION, WORK / SCHOOL INSTRUCTIONS Patient Instructions My [facility] Problem Qualifiers
[2017-12-31 15:16] LABS: BASO % 0.2 %; BASO ABS # 0.01 K/uL (0-0.2); EOS ABS # 0.04 K/uL (0-0.5); HEMATOCRIT 40.4 % (37-47); HEMOGLOBIN 13.1 g/dL (12.0-16.0); IG# 0.02 K/uL (0.00-0.02); LYMPH % 25.8 %; LYMPH ABS # 1.05 K/uL (1.2-3.4); MEAN CORPUSCULAR HEMOGLOBIN 30.5 pg (25-34); MEAN CORPUSCULAR HGB CONC 32.4 g/dl (32-36); MEAN PLATELET VOLUME 11.1 fL (7.4-10.4); MONO ABS # 0.53 K/uL (0.11-0.59); NEUT % 59.5 %; NEUT ABS # 2.42 K/uL (1.4-6.5); PLATELET COUNT 142 K/uL (130-400); RED CELL DISTRIBUTION WIDTH CV 14.9 % (11.5-14.5); RED CELL DISTRIBUTION WIDTH SD 50.9 fL (36.4-46.3); WHITE BLOOD COUNT 4.07 K/uL (4.8-10.8)
--- NOTE | 2017-12-31 15:16 | DIAGNOSTIC IMAGING REPORT ---
SINGLE VIEW CHEST CLINICAL HISTORY: Dyspnea. FINDINGS: An AP, portable, upright chest radiograph is compared to study dated 10/11/2016. The examination is degraded by portable technique and patient rotation. The heart is top normal for projection and there is atherosclerotic calcification of the thoracic aorta. Chronic interstitial thickening is similar to previous. There are left basilar opacities and a small left pleural effusion. The right lung is grossly clear. No pneumothorax is seen. The skeletal structures are osteopenic. The bony thorax is grossly intact. Degenerative change is noted in the shoulders and thoracic spine. IMPRESSION: There are left basilar opacities and a small left pleural effusion. This could represent atelectasis versus pneumonia/aspiration pneumonitis. Clinical correlation will be required and radiographic follow-up to resolution is recommended. Electronically signed by: Duncan Blair M.D. 12/31/2017 3:15 PM Dictated Date/Time: 12/31/2017 3:13 PM
[2017-12-31 15:40] LABS: ALBUMIN 3.5 gm/dl (3.4-5.0); ALKALINE PHOSPHATASE 78 U/L (45-117); ALT/SGPT 14 U/L (12-78); AST/SGOT 15 U/L (15-37); BLOOD UREA NITROGEN 14 mg/dl (7-18); CARBON DIOXIDE 30 mmol/L (21-32); CREATININE 0.75 mg/dl (0.60-1.20); GLUCOSE 85 mg/dl (70-99); POTASSIUM 3.5 mmol/L (3.5-5.1); SODIUM 141 mmol/L (136-145); TOTAL PROTEIN 7.5 gm/dl (6.4-8.2)
[2017-12-31] MEDS ORDERED: CEFTRIAXONE SOD INJ 1 GM ADDVIAL IV STA (15:41)
[2017-12-31 15:52] VITALS: O2SAT 99; BMI 26.8
[2017-12-31] MEDS ORDERED: SERT25TA PO (15:56)
[2017-12-31] MEDS ORDERED: FELO10TA2 PO (15:56)
[2017-12-31] MEDS ORDERED: [UNRECOGNIZED DRUG - CODE] PO (15:56)
[2017-12-31] MEDS ORDERED: CALCCHW17 PO (15:56)
[2017-12-31] MEDS ORDERED: LEVO1TAB33 PO (15:56)
[2017-12-31] MEDS ORDERED: RANI150T85 PO (15:56)
[2017-12-31] MEDS ORDERED: ACET-1256 PO (15:56)
--- NOTE | 2017-12-31 15:58 | History and Physical ---
History & Physical Date & Time of Service: Dec 31, 2017 at 15:58 Chief Complaint: Referred By Doctor Primary Care Physician: Trace Singleton D.O. History of Present Illness Source: patient, hospital records, other 87 y/o F Hx HTN, GERD. Pt states she began to feel congested and weak approximately one week ago. She visited her MD 3 days prior and was placed on Levaquin. She has had 2 doses, however, she felt her symptoms were worsening. She was directed to attend the ER. She admits to a persistent productive cough and a generally ill feeling. She denies CP, significant SOB or fevers. An initial CXR in the ER demonstrates a LLL PNM. The pt was mildly hypoxic and afebrile on arrival to the ER. Past Medical/Surgical History 1) HTN 2) GERD 3) Anxiety disorder Surgical; 1) Hernia repair 2) SBO 2011 Family History Diabetes mellitus Gallbladder disease Hypertension Social History Quit smoking 20 years ago. She lives alone. She raised 6 children alone and was employed in a plastics factory for 20 years. Smoking Status: Former Smoker Marital Status: Occupational Status: retired Immunizations History of Influenza Vaccine: N/A History of Tetanus Vaccine?: Unknown History of Pneumococcal: ABOUT 6 YEARS AGO History of Hepatitis B Vaccine: Unknown Allergies Coded Allergies: Sucralfate (Verified Allergy, Severe, THROAT SWELLS, THROAT ITCHES, SEVERE COUGHING., 12/31/17) INFO FROM [employer] Alendronate (Unverified Adverse Reaction, Severe, VERY ILL, 09/11/16) Pneumococcal Vaccines (Verified Adverse Reaction, Severe, RED, SWOLLEN ARM , 12/31/17) Lisinopril (Verified Adverse Reaction, Intermediate, COUGH, 12/31/17) Home Medications Scheduled Acetaminophen (Tylenol), 500 MG PO PRN UD Qscau-T-Yugzzqpixghhz (Gas-X Prevention), 1 CAP PO PRN Felodipine (Plendil), 10 MG PO DAILY Levofloxacin (Levaquin), 500 MG PO DAILY Losartan Potassium (Cozaar), 100 MG PO DAILY Ranitidine (Zantac), 150 MG PO BID Sertraline (Zoloft), 25 MG PO QPM Scheduled PRN Albuterol (Ventolin Hfa), 2 PUFFS INH Q4 PRN for Shortness of Breath Calcium Carbonate (Antacid) (Tums Ultra 1000), 1,000 MG PO TID PRN for ACID REFLUX Review of Systems Constitutional: + weakness, + fatigue, No fever, No chills, No sweats Eyes: No worsening of vision ENT: No hearing loss, No unusual epistaxis, No nasal symptoms Respiratory: + cough, + sputum, No wheezing Cardiovascular: No chest pain, No orthopnea, No PND Abdomen: No pain, No nausea Musculoskeletal: No joint pain Genitourinary - Female: No dysuria, No urinary frequency, No urinary urgency Neurologic: + weakness, No memory loss, No paralysis Psychiatric: + anxiety, No depression symptoms Endocrine: No fatigue Hematologic / Lymphatic: No abnormal bleeding/bruising Integumentary: No rash Physical Exam Vital Signs Date Time Temp Pulse Resp B/P (MAP) Pulse Ox O2 Delivery O2 Flow Rate FiO2 12/31/17 14:58 99 Nasal Cannula 4.0 12/31/17 14:58 99 Nasal Cannula 4.0 12/31/17 14:42 68 12/31/17 14:28 36.4 76 19 156/78 89 Room Air General Appearance: + pertinent finding (Pleasant, anxious, elderly female - no distress) Head: normocephalic Eyes: normal inspection ENT: normal ENT inspection, pharynx normal Neck: supple, no JVD Respiratory/Chest: chest non-tender, + pertinent finding (Crackles at L base) Cardiovascular: regular rate, rhythm, no gallop, normal peripheral pulses Abdomen/GI: normal bowel sounds, non tender, soft Back: normal inspection, no CVA tenderness Extremities/Musculoskelatal: normal inspection, no calf tenderness Neurologic/Psych: manager technical sales II-XII nml as tested, no motor/sensory deficits, alert, oriented x 3 Skin: normal color Diagnostics Laboratory Results Results Past 24 Hours Test 12/31/17 14:53 12/31/17 15:15 12/31/17 15:17 Range/Units White Blood Count 4.07 4.8-10.8 K/uL Red Blood Count 4.30 4.2-5.4 M/uL Hemoglobin 13.1 12.0-16.0 g/dL Hematocrit 40.4 37-47 % Mean Corpuscular Volume 94.0 80-100 fL Mean Corpuscular Hemoglobin 30.5 25-34 pg Mean Corpuscular Hemoglobin Concent 32.4 32-36 g/dl Platelet Count 142 130-400 K/uL Mean Platelet Volume 11.1 7.4-10.4 fL Neutrophils (%) (Auto) 59.5 % Lymphocytes (%) (Auto) 25.8 % Monocytes (%) (Auto) 13.0 % Eosinophils (%) (Auto) 1.0 % Basophils (%) (Auto) 0.2 % Neutrophils # (Auto) 2.42 1.4-6.5 K/uL Lymphocytes # (Auto) 1.05 1.2-3.4 K/uL Monocytes # (Auto) 0.53 0.11-0.59 K/uL Eosinophils # (Auto) 0.04 0-0.5 K/uL Basophils # (Auto) 0.01 0-0.2 K/uL RDW Standard Deviation 50.9 36.4-46.3 fL RDW Coefficient of Variation 14.9 11.5-14.5 % Immature Granulocyte % (Auto) 0.5 % Immature Granulocyte # (Auto) 0.02 0.00-0.02 K/uL Sodium Level 141 136-145 mmol/L Potassium Level 3.5 3.5-5.1 mmol/L Chloride Level 104 98-107 mmol/L Carbon Dioxide Level 30 21-32 mmol/L Anion Gap 8.0 3-11 mmol/L Blood Urea Nitrogen 14 7-18 mg/dl Creatinine 0.75 0.60-1.20 mg/dl Estimated GFR () 82.5 Estimated GFR (Non- 71.2 BUN/Creatinine Ratio 19.0 10-20 Random Glucose 85 70-99 mg/dl Calcium Level 9.0 8.5-10.1 mg/dl Total Bilirubin 0.7 0.2-1 mg/dl Aspartate Amino Transf (AST/SGOT) 15 15-37 U/L Alanine Aminotransferase (ALT/SGPT) 14 12-78 U/L Alkaline Phosphatase 78 45-117 U/L Troponin I < 0.015 0-0.045 ng/ml Total Protein 7.5 6.4-8.2 gm/dl Albumin 3.5 3.4-5.0 gm/dl Globulin 4.0 2.5-4.0 gm/dl Albumin/Globulin Ratio 0.9 0.9-2 Venous Blood pH 7.35 7.36-7.41 Venous Blood Partial Pressure CO2 59 38.0-50.0 mmHg Venous Blood Partial Pressure O2 32 mmHg Venous Blood HCO3 32 mmol/L Venous Blood Oxygen Saturation 62.1 % Venous Blood Base Excess 4.5 mEq/L Bedside Lactic Acid Venous 0.93 0.90-1.70 mmol/L Microbiology Results 12/31/17 Blood Culture, Received Pending 12/31/17 Blood Culture, Received Pending Diagnostic Radiology CXR: There are left basilar opacities and a small left pleural effusion. This could represent atelectasis versus pneumonia/aspiration pneumonitis. Normal EKG Impression Assessment and Plan 87 y/o F Hx HTN, GERD. Pt states she began to feel congested and weak approximately one week ago. She visited her MD 3 days prior and was placed on Levaquin. She has had 2 doses, however, she felt her symptoms were worsening. She was directed to attend the ER. She admits to a persistent productive cough and a generally ill feeling. She denies CP, significant SOB or fevers. An initial CXR in the ER demonstrates a LLL PNM. The pt was mildly hypoxic and afebrile on arrival to the ER. 1) PNM - possibly aspiration - she denies a history of dysphagia, although she does suffer from reflux. She has only had 2 doses of PO Levaquin. We will place her on IV Levaquin and add Flagyl pending results of blood and sputum cultures. She will be provided with scheduled nebs and an 02 protocol. 2) HTN - cont Plendil, Losartan 3) Anxiety - cont Sertraline 4) GERD - cont Ranitidine Full code - Heparin prophylaxis Total time for this admit including review of labs, meds, imaging, records - discussion with pt an ER attending - 35 min Resuscitation Status VTE Prophylaxis Will order VTE Prophylaxis: Yes
[2017-12-31] MEDS ORDERED: ALUMINUM/MAGNESIUM/SIMETH (MAALOX MAX) 30 ML UDC PO PRN (16:00)
[2017-12-31] MEDS ORDERED: POLYETHYLENE (MIRALAX) 17 GM PACK PO PRN (16:00)
[2017-12-31] MEDS ORDERED: MAGNESIUM HYDROXIDE SUSP 30 ML UDC PO PRN (16:00)
[2017-12-31] MEDS ORDERED: ONDANSETRON INJ 2 MG/ML 2 ML VIAL IV PRN (16:00)
[2017-12-31] MEDS ORDERED: ACETAMINOPHEN 325 MG TAB PO PRN (16:00)
[2017-12-31] MEDS ORDERED: ALBUTEROL 0.083% NEBU SOLN 3 ML VIAL INH PRN (16:00)
[2017-12-31] MEDS ORDERED: LOSA50TA6 PO (16:55)
[2017-12-31] MEDS ORDERED: LEVOFLOXACIN CONSULT ACTIVE PRN (17:30)
[2017-12-31] MEDS ORDERED: D5NSS + 20MEQ KCL 1,000 ML IV SCH (17:30)
[2017-12-31 17:40] VITALS: BP 151/76; PULSE 69; TEMP 37.3; O2SAT 95
[2017-12-31 17:59] LABS: PTT PATIENT 29.9 SECONDS (21.0-31.0)
[2017-12-31] MEDS: METRONIDAZOLE / NSS 500 MG in PREMIXED NSS 100 ML IV SCH (18:16)
[2017-12-31] MEDS: ALBUT/IPRATROP 3MG/0.5MG NEB 3 ML VIAL INH SCH (18:59)
[2017-12-31 19:02] VITALS: PULSE 77; O2SAT 92
--- NOTE | 2017-12-31 19:39 | History and Physical ---
History & Physical Date of Service Dec 31, 2017. History & Physical This is an 87 year old female with a past medical history of HTN, anxiety, asthma, GERD - presents from primary care doctor's office due to hypoxia and likely pneumonia. Patient states she's had a cough, with sputum production, she has felt short of breath for 2-3 days. Presented to the ED, noted to be hypoxic on room air. CXR was performed - showing likely pneumonia. Patient was admitted by [facility] hospitalist - patient sees a [facility] primary care, Dr. Singleton and was transferred to our service. Plan should remain the same. Can likely d/c Flagyl on 01/01 as patient does not seem to be aspirating or have any trouble with choking. Levaquin alone should suffice. Continue nebs as needed. Hold off on steroid use. Wean O2 as tolerated
[2017-12-31] MEDS: HEPARIN SOD 5000 UNIT/0.5 ML CARP SQ SCH (20:00)
[2017-12-31] MEDS ORDERED: PRVHFAIN INH (20:19)
[2017-12-31] MEDS: FELODIPINE 2.5 MG TABCR PO SCH (21:56)
[2017-12-31 23:53] VITALS: BP 167/73; PULSE 63; TEMP 36.5; O2SAT 97
[2018-01-01] MEDS: ALBUT/IPRATROP 3MG/0.5MG NEB 3 ML VIAL INH SCH ×4 (02:03→19:36)
[2018-01-01] MEDS: METRONIDAZOLE / NSS 500 MG in PREMIXED NSS 100 ML IV SCH ×3 (02:19→17:48)
[2018-01-01 06:17] LABS: HEMOGLOBIN 11.3 g/dL (12.0-16.0); MEAN CORPUSCULAR HEMOGLOBIN 29.8 pg (25-34); MEAN CORPUSCULAR HGB CONC 31.4 g/dl (32-36); MEAN PLATELET VOLUME 10.2 fL (7.4-10.4); PLATELET COUNT 113 K/uL (130-400); RED CELL DISTRIBUTION WIDTH CV 14.7 % (11.5-14.5); WHITE BLOOD COUNT 3.67 K/uL (4.8-10.8)
[2018-01-01 06:51] LABS: BLOOD UREA NITROGEN 16 mg/dl (7-18); CARBON DIOXIDE 31 mmol/L (21-32); CREATININE 0.83 mg/dl (0.60-1.20); GLUCOSE 115 mg/dl (70-99); POTASSIUM 3.9 mmol/L (3.5-5.1); SODIUM 144 mmol/L (136-145)
[2018-01-01 06:57] VITALS: PULSE 50; O2SAT 98
[2018-01-01 07:08] VITALS: BP 166/83; PULSE 59; TEMP 36.5; O2SAT 98
[2018-01-01] MEDS: FELODIPINE 2.5 MG TABCR PO SCH ×2 (07:42→19:47)
[2018-01-01] MEDS: LOSARTAN POTASSIUM 50 MG TAB PO SCH (07:42)
[2018-01-01] MEDS: PANTOprazole SOD 40 MG TAB PO SCH (07:43)
[2018-01-01] MEDS: HEPARIN SOD 5000 UNIT/0.5 ML CARP SQ SCH ×2 (07:44→19:47)
--- NOTE | 2018-01-01 08:52 | Progress Note ---
Medicine Progress Note Date & Time of Visit: Jan 01, 2018 at 08:47. Subjective seen sitting up in bedside chair on 3 L NC, comfortable, not in distress speaks in sentences with no effort, has intermittent coughing spells states breathing is starting to improve phlegm is now white denies chest pain or any other symptoms Objective Last 8 Hrs Date Time Temp Pulse Resp B/P (MAP) Pulse Ox O2 Delivery O2 Flow Rate FiO2 01/01/18 07:08 36.5 59 20 166/83 (110) 98 Nasal Cannula 4.0 01/01/18 06:57 50 15 98 Nasal Cannula 3.0 01/01/18 02:55 Nasal Cannula 4.0 Physical Exam: General- oriented x 3, not in distress, speaks in sentences with no effort Head- atraumatic Eyes- PERRL, EOMI, anicteric ENT- oropharynx clear Neck- supple, no JVD, no adenopathy, no thyromegaly Lungs- mild wheeze on the right upper lung, crackles on the left base Heart- regular rhythm; no murmur, normal rate Abdomen- normal bowel sounds, soft, nontender Extremities- no pretibial edema, no calf tenderness; peripheral pulses intact Neuro- alert, oriented x 3; no gross focal deficits Skin- warm & dry Laboratory Results: Last 24 Hours Test 12/31/17 14:53 12/31/17 15:15 12/31/17 15:17 12/31/17 17:35 White Blood Count 4.07 K/uL Red Blood Count 4.30 M/uL Hemoglobin 13.1 g/dL Hematocrit 40.4 % Mean Corpuscular Volume 94.0 fL Mean Corpuscular Hemoglobin 30.5 pg Mean Corpuscular Hemoglobin Concent 32.4 g/dl Platelet Count 142 K/uL Mean Platelet Volume 11.1 fL Neutrophils (%) (Auto) 59.5 % Lymphocytes (%) (Auto) 25.8 % Monocytes (%) (Auto) 13.0 % Eosinophils (%) (Auto) 1.0 % Basophils (%) (Auto) 0.2 % Neutrophils # (Auto) 2.42 K/uL Lymphocytes # (Auto) 1.05 K/uL Monocytes # (Auto) 0.53 K/uL Eosinophils # (Auto) 0.04 K/uL Basophils # (Auto) 0.01 K/uL RDW Standard Deviation 50.9 fL RDW Coefficient of Variation 14.9 % Immature Granulocyte % (Auto) 0.5 % Immature Granulocyte # (Auto) 0.02 K/uL Sodium Level 141 mmol/L Potassium Level 3.5 mmol/L Chloride Level 104 mmol/L Carbon Dioxide Level 30 mmol/L Anion Gap 8.0 mmol/L Blood Urea Nitrogen 14 mg/dl Creatinine 0.75 mg/dl Estimated GFR () 82.5 Estimated GFR (Non- 71.2 BUN/Creatinine Ratio 19.0 Random Glucose 85 mg/dl Calcium Level 9.0 mg/dl Total Bilirubin 0.7 mg/dl Aspartate Amino Transf (AST/SGOT) 15 U/L Alanine Aminotransferase (ALT/SGPT) 14 U/L Alkaline Phosphatase 78 U/L Troponin I < 0.015 ng/ml Total Protein 7.5 gm/dl Albumin 3.5 gm/dl Globulin 4.0 gm/dl Albumin/Globulin Ratio 0.9 Venous Blood pH 7.35 Venous Blood Partial Pressure CO2 59 mmHg Venous Blood Partial Pressure O2 32 mmHg Venous Blood HCO3 32 mmol/L Venous Blood Oxygen Saturation 62.1 % Venous Blood Base Excess 4.5 mEq/L Bedside Lactic Acid Venous 0.93 mmol/L Prothrombin Time 10.7 SECONDS Prothromb Time International Ratio 1.0 Activated Partial Thromboplast Time 29.9 SECONDS Partial Thromboplastin Ratio 1.2 Test 01/01/18 05:54 White Blood Count 3.67 K/uL Red Blood Count 3.79 M/uL Hemoglobin 11.3 g/dL Hematocrit 36.0 % Mean Corpuscular Volume 95.0 fL Mean Corpuscular Hemoglobin 29.8 pg Mean Corpuscular Hemoglobin Concent 31.4 g/dl RDW Standard Deviation 51.0 fL RDW Coefficient of Variation 14.7 % Platelet Count 113 K/uL Mean Platelet Volume 10.2 fL Sodium Level 144 mmol/L Potassium Level 3.9 mmol/L Chloride Level 108 mmol/L Carbon Dioxide Level 31 mmol/L Anion Gap 6.0 mmol/L Blood Urea Nitrogen 16 mg/dl Creatinine 0.83 mg/dl Estimated GFR () 73.0 Estimated GFR (Non- 63.0 BUN/Creatinine Ratio 18.9 Random Glucose 115 mg/dl Calcium Level 8.0 mg/dl Magnesium Level 2.0 mg/dl Date/Time Source Procedure Growth Status 12/31/17 15:15 Blood Blood Culture Pending Received 12/31/17 14:53 Blood Blood Culture Pending Received Assessment & Plan 87 y/o F Hx HTN, GERD. Pt states she began to feel congested and weak approximately one week ago. She visited her MD 3 days prior and was placed on Levaquin. She has had 2 doses, however, she felt her symptoms were worsening. She was directed to attend the ER. She admits to a persistent productive cough and a generally ill feeling. She denies CP, significant SOB or fevers. An initial CXR in the ER demonstrates a LLL PNM. The pt was mildly hypoxic and afebrile on arrival to the ER. 1) PNEUMONIA, POSSIBLE COMMUNITY ACQUIRED VS. ASPIRATION - improving - continue Levaquin + Flagyl IV Nebs q6h - Speech Therapy Eval - wean off oxygen 2) HTN - cont Plendil, Losartan 3) Anxiety - cont Sertraline 4) GERD - Protonix scheduled for EGD in 2 days, needs to be cancelled Full code - Heparin prophylaxis Total time for this admit including review of labs, meds, imaging, records - discussion with pt an ER attending - 35 min Current Inpatient Medications: Current Inpatient Medications Medications (Trade) Dose Ordered Sig/Bradley Route Start Time Stop Time Status Last Admin Dose Admin Felodipine (Plendil Tabcr) 2.5 mg BID PO 12/31/17 20:00 01/30/18 20:59 01/01/18 07:42 2.5 MG Losartan Potassium (coZAAR TAB) 100 mg DAILY PO 01/01/18 08:00 01/31/18 08:59 01/01/18 07:42 100 MG Pantoprazole Sodium (Protonix Tab) 40 mg DAILY PO 01/01/18 08:00 01/31/18 08:59 01/01/18 07:43 40 MG Acetaminophen (Tylenol Tab) 650 mg Q4H PRN PO 12/31/17 16:00 01/30/18 15:59 Al Hydrox/Mg Hydrox/Simethicone (Maalox Max Susp) 15 ml Q4H PRN PO 12/31/17 16:00 01/30/18 15:59 Magnesium Hydroxide (Milk Of Magnesia Susp) 30 ml Q6H PRN PO 12/31/17 16:00 01/30/18 15:59 Polyethylene (Miralax Powder Packet) 17 gm DAILY PRN PO 12/31/17 16:00 01/30/18 15:59 Ondansetron HCl (Zofran Inj) 4 mg Q6H PRN IV 12/31/17 16:00 01/30/18 15:59 Heparin Sodium (Porcine) (Heparin Sq 5000 Unit/0.5ml) 5,000 unit Q12H SQ 12/31/17 20:00 01/30/18 19:59 Albuterol/ Ipratropium (Duoneb) 3 ml Q6R INH 12/31/17 16:00 01/30/18 15:59 01/01/18 06:55 3 ML Albuterol Sulfate (Ventolin 0.083% 2.5MG/3ML Neb) 2.5 mg Q4H PRN INH 12/31/17 16:00 01/30/18 15:59 Metronidazole 500 mg/Prmx 100 ml @ 100 mls/hr Q8H IV 12/31/17 18:00 01/07/18 17:59 01/01/18 02:19 100 MLS/HR Levofloxacin 750 mg/Prmx 150 ml @ 100 mls/hr DAILY@1100 IV 01/01/18 11:00 01/08/18 10:59 Levofloxacin (Consult) 1 ea UD PRN N/A 12/31/17 17:30 01/30/18 17:29
[2018-01-01] MEDS: PATIENT'S HEIGHT AND/OR WEIGHT NEEDED SCH ×3 (10:23→13:27)
[2018-01-01] MEDS ORDERED: LEVOFLOXACIN / D5W 750 MG in PREMIXED IN D5W 150 ML IV SCH (11:00)
[2018-01-01 13:41] VITALS: Ht 165.1 cm; Wt 73.8 kg
[2018-01-01 14:15] VITALS: PULSE 78; O2SAT 93
[2018-01-01 15:02] VITALS: BP 150/68; PULSE 100; TEMP 36.4; O2SAT 94
[2018-01-01 19:36] VITALS: PULSE 71; O2SAT 97
[2018-01-01 23:30] VITALS: BP 151/68; PULSE 77; TEMP 36.9; O2SAT 93
[2018-01-02] MEDS: METRONIDAZOLE / NSS 500 MG in PREMIXED NSS 100 ML IV SCH ×3 (01:56→18:49)
[2018-01-02] MEDS: ALBUT/IPRATROP 3MG/0.5MG NEB 3 ML VIAL INH SCH ×3 (02:02→18:53)
[2018-01-02] MEDS: GUAIFENESIN/CODEINE 100MG/10MG 5ML UDC PO PRN ×2 (03:25→21:20)
[2018-01-02 06:32] VITALS: BP 151/75; PULSE 79; TEMP 37.2; O2SAT 93
[2018-01-02] MEDS: PANTOprazole SOD 40 MG TAB PO SCH (07:51)
[2018-01-02] MEDS: LOSARTAN POTASSIUM 50 MG TAB PO SCH (07:51)
[2018-01-02] MEDS: FELODIPINE 2.5 MG TABCR PO SCH ×2 (07:51→20:19)
[2018-01-02] MEDS: HEPARIN SOD 5000 UNIT/0.5 ML CARP SQ SCH ×2 (07:52→20:00)
[2018-01-02 08:30] VITALS: O2SAT 93
[2018-01-02 09:16] LABS: CREATININE 0.84 mg/dl (0.60-1.20)
[2018-01-02 14:28] VITALS: PULSE 77; O2SAT 92
[2018-01-02 15:17] VITALS: BP 153/71; PULSE 81; TEMP 36.6; O2SAT 90
[2018-01-02 16:03] VITALS: O2SAT 90
[2018-01-02 18:53] VITALS: PULSE 85; O2SAT 91
--- NOTE | 2018-01-02 23:44 | Progress Note ---
Medicine Progress Note Date & Time of Visit: Jan 02, 2018 at 23:44. delayed entry date of service as noted above Subjective seen resting in bedside chair daughter Marysol at bedside states she is feeling improved less cough, sputum no chest pain denies other symptoms Objective Last 8 Hrs Date Time Temp Pulse Resp B/P (MAP) Pulse Ox O2 Delivery O2 Flow Rate FiO2 01/02/18 18:53 85 16 91 Nasal Cannula 1.0 01/02/18 16:03 90 Nasal Cannula 1.0 Physical Exam: General- oriented x 3, not in distress, speaks in sentences with no effort Head- atraumatic Eyes- PERRL, EOMI, anicteric ENT- oropharynx clear Neck-no JVD Lungs- left base crackles no wheeze Heart- regular rhythm; no murmur, normal rate Abdomen- normal bowel sounds, soft, nontender Extremities- no pretibial edema, no calf tenderness; peripheral pulses intact Neuro- alert, oriented x 3; no gross focal deficits Skin- warm & dry Laboratory Results: Last 24 Hours Test 01/02/18 08:30 Creatinine 0.84 mg/dl Est Creatinine Clear Calc Drug Dose 46.6 ml/min Estimated GFR () 71.9 Estimated GFR (Non- 62.1 Assessment & Plan 87 y/o F Hx HTN, GERD. Pt states she began to feel congested and weak approximately one week ago. She visited her MD 3 days prior and was placed on Levaquin. She has had 2 doses, however, she felt her symptoms were worsening. She was directed to attend the ER. She admits to a persistent productive cough and a generally ill feeling. She denies CP, significant SOB or fevers. An initial CXR in the ER demonstrates a LLL PNM. The pt was mildly hypoxic and afebrile on arrival to the ER. 1) PNEUMONIA, POSSIBLE COMMUNITY ACQUIRED VS. ASPIRATION - continues to improve - continue Levaquin + Flagyl IV Nebs q6h - Speech Therapy Eval: no aspiration noted - wean off oxygen 2) HTN - cont Plendil, Losartan 3) Anxiety - cont Sertraline 4) GERD - Protonix scheduled for EGD in 2 days, needs to be cancelled Full code - Heparin prophylaxis Total time for this admit including review of labs, meds, imaging, records - discussion with pt an ER attending - 35 min Current Inpatient Medications: Current Inpatient Medications Medications (Trade) Dose Ordered Sig/Bradley Route Start Time Stop Time Status Last Admin Dose Admin Felodipine (Plendil Tabcr) 2.5 mg BID PO 12/31/17 20:00 01/30/18 20:59 01/02/18 20:19 2.5 MG Losartan Potassium (coZAAR TAB) 100 mg DAILY PO 01/01/18 08:00 01/31/18 08:59 01/02/18 07:51 100 MG Pantoprazole Sodium (Protonix Tab) 40 mg DAILY PO 01/01/18 08:00 01/31/18 08:59 01/02/18 07:51 40 MG Acetaminophen (Tylenol Tab) 650 mg Q4H PRN PO 12/31/17 16:00 01/30/18 15:59 Al Hydrox/Mg Hydrox/Simethicone (Maalox Max Susp) 15 ml Q4H PRN PO 12/31/17 16:00 01/30/18 15:59 Magnesium Hydroxide (Milk Of Magnesia Susp) 30 ml Q6H PRN PO 12/31/17 16:00 01/30/18 15:59 Polyethylene (Miralax Powder Packet) 17 gm DAILY PRN PO 12/31/17 16:00 01/30/18 15:59 Ondansetron HCl (Zofran Inj) 4 mg Q6H PRN IV 12/31/17 16:00 01/30/18 15:59 Heparin Sodium (Porcine) (Heparin Sq 5000 Unit/0.5ml) 5,000 unit Q12H SQ 12/31/17 20:00 01/30/18 19:59 Albuterol/ Ipratropium (Duoneb) 3 ml Q6R INH 12/31/17 16:00 01/30/18 15:59 01/02/18 18:53 3 ML Albuterol Sulfate (Ventolin 0.083% 2.5MG/3ML Neb) 2.5 mg Q4H PRN INH 12/31/17 16:00 01/30/18 15:59 Metronidazole 500 mg/Prmx 100 ml @ 100 mls/hr Q8H IV 12/31/17 18:00 01/07/18 17:59 01/02/18 18:49 100 MLS/HR Levofloxacin (Consult) 1 ea UD PRN N/A 12/31/17 17:30 01/30/18 17:29 Codeine Phosphate/ Guaifenesin (Robitussin-AC Sugar Free Syrup) 5 ml Q6H PRN PO 01/02/18 03:00 02/01/18 02:59 01/02/18 21:20 5 ML Levofloxacin 750 mg/Prmx 150 ml @ 100 mls/hr Q48H IV 01/03/18 12:00 01/04/18 11:59
[2018-01-03] VITALS (8 sets, daily range): BP systolic 126–170; BP diastolic 66–81; PULSE 63–83; TEMP 36.7–37.5; O2SAT 90–97
[2018-01-03] MEDS: ALBUT/IPRATROP 3MG/0.5MG NEB 3 ML VIAL INH SCH ×3 (02:03→14:15)
[2018-01-03] MEDS: METRONIDAZOLE / NSS 500 MG in PREMIXED NSS 100 ML IV SCH ×2 (02:24→10:55)
[2018-01-03] MEDS: HEPARIN SOD 5000 UNIT/0.5 ML CARP SQ SCH (08:00)
[2018-01-03] MEDS: PANTOprazole SOD 40 MG TAB PO SCH (08:10)
[2018-01-03] MEDS: FELODIPINE 2.5 MG TABCR PO SCH (08:10)
[2018-01-03] MEDS: LOSARTAN POTASSIUM 50 MG TAB PO SCH (08:11)
[2018-01-03 08:56] LABS: EOS ABS # 0.05 K/uL (0-0.5); HEMATOCRIT 38.6 % (37-47); HEMOGLOBIN 12.1 g/dL (12.0-16.0); IG# 0.02 K/uL (0.00-0.02); LYMPH % 19.4 %; LYMPH ABS # 0.93 K/uL (1.2-3.4); MEAN CELL VOLUME 94.8 fL (80-100); MEAN CORPUSCULAR HEMOGLOBIN 29.7 pg (25-34); MEAN CORPUSCULAR HGB CONC 31.3 g/dl (32-36); MEAN PLATELET VOLUME 10.9 fL (7.4-10.4); MONO % 13.2 %; MONO ABS # 0.63 K/uL (0.11-0.59); NEUT ABS # 3.16 K/uL (1.4-6.5); PLATELET COUNT 133 K/uL (130-400); RED CELL DISTRIBUTION WIDTH CV 15.2 % (11.5-14.5); RED CELL DISTRIBUTION WIDTH SD 52.5 fL (36.4-46.3); WHITE BLOOD COUNT 4.79 K/uL (4.8-10.8)
[2018-01-03 09:37] LABS: CREATININE 0.73 mg/dl (0.60-1.20)
--- NOTE | 2018-01-03 11:33 | Progress Note ---
Medicine Progress Note Date & Time of Visit: Jan 03, 2018 at 11:29. Subjective seen resting in bedside chair comfortable in good spirits states she feels much better denies dyspnea cough and sputum is less no other symptoms states she is ready and would like to be discharged today Objective Last 8 Hrs Date Time Temp Pulse Resp B/P (MAP) Pulse Ox O2 Delivery O2 Flow Rate FiO2 01/03/18 08:30 97 Nasal Cannula 1.0 01/03/18 07:30 37.1 81 18 126/66 (86) 93 Nasal Cannula 1.0 01/03/18 07:23 36.7 75 16 135/71 (92) 97 Nasal Cannula 2.0 01/03/18 06:55 63 16 90 Nasal Cannula 2.0 Physical Exam: General- oriented x 3, not in distress, speaks in sentences with no effort Eyes- anicteric ENT- oropharynx clear Neck-no JVD Lungs- clear breath sounds bilaterally, no rales/wheezes Heart- regular rhythm; no murmur, normal rate Abdomen- normal bowel sounds, soft, nontender Extremities- no pretibial edema, no calf tenderness Neuro- alert, oriented x 3; no gross focal deficits Skin- warm & dry Laboratory Results: Last 24 Hours Test 01/03/18 08:32 White Blood Count 4.79 K/uL Red Blood Count 4.07 M/uL Hemoglobin 12.1 g/dL Hematocrit 38.6 % Mean Corpuscular Volume 94.8 fL Mean Corpuscular Hemoglobin 29.7 pg Mean Corpuscular Hemoglobin Concent 31.3 g/dl Platelet Count 133 K/uL Mean Platelet Volume 10.9 fL Neutrophils (%) (Auto) 66.0 % Lymphocytes (%) (Auto) 19.4 % Monocytes (%) (Auto) 13.2 % Eosinophils (%) (Auto) 1.0 % Basophils (%) (Auto) 0.0 % Neutrophils # (Auto) 3.16 K/uL Lymphocytes # (Auto) 0.93 K/uL Monocytes # (Auto) 0.63 K/uL Eosinophils # (Auto) 0.05 K/uL Basophils # (Auto) 0.00 K/uL RDW Standard Deviation 52.5 fL RDW Coefficient of Variation 15.2 % Immature Granulocyte % (Auto) 0.4 % Immature Granulocyte # (Auto) 0.02 K/uL Creatinine 0.73 mg/dl Est Creatinine Clear Calc Drug Dose 53.6 ml/min Estimated GFR () 85.2 Estimated GFR (Non- 73.5 Assessment & Plan 87 y/o F Hx HTN, GERD. Pt states she began to feel congested and weak approximately one week ago. She visited her MD 3 days prior and was placed on Levaquin. She has had 2 doses, however, she felt her symptoms were worsening. She was directed to attend the ER. She admits to a persistent productive cough and a generally ill feeling. She denies CP, significant SOB or fevers. An initial CXR in the ER demonstrates a LLL PNM. The pt was mildly hypoxic and afebrile on arrival to the ER. 1) PNEUMONIA, POSSIBLE COMMUNITY ACQUIRED VS. ASPIRATION - placed on Levaquin + Flagyl IV x 4 days Nebs q6h - Speech Therapy Eval: no overt aspiration noted - patient gradually improved - discharge plan: Levaquin 750mg po x 1 more day on Friday 01/05 Augmentin x 3 more days Nebs BID and q4h PRN, until re-eval by PCP - wean off oxygen 2) HTN - cont Plendil, Losartan 3) Anxiety - cont Sertraline 4) GERD - Protonix scheduled for EGD in 2 days, needs to be cancelled ff up with PCP in 3-5 days- details in d/c instructions Current Inpatient Medications: Current Inpatient Medications Medications (Trade) Dose Ordered Sig/Bradley Route Start Time Stop Time Status Last Admin Dose Admin Felodipine (Plendil Tabcr) 2.5 mg BID PO 12/31/17 20:00 01/30/18 20:59 01/03/18 08:10 2.5 MG Losartan Potassium (coZAAR TAB) 100 mg DAILY PO 01/01/18 08:00 01/31/18 08:59 01/03/18 08:11 100 MG Pantoprazole Sodium (Protonix Tab) 40 mg DAILY PO 01/01/18 08:00 01/31/18 08:59 01/03/18 08:10 40 MG Acetaminophen (Tylenol Tab) 650 mg Q4H PRN PO 12/31/17 16:00 01/30/18 15:59 Al Hydrox/Mg Hydrox/Simethicone (Maalox Max Susp) 15 ml Q4H PRN PO 12/31/17 16:00 01/30/18 15:59 Magnesium Hydroxide (Milk Of Magnesia Susp) 30 ml Q6H PRN PO 12/31/17 16:00 01/30/18 15:59 Polyethylene (Miralax Powder Packet) 17 gm DAILY PRN PO 12/31/17 16:00 01/30/18 15:59 Ondansetron HCl (Zofran Inj) 4 mg Q6H PRN IV 12/31/17 16:00 01/30/18 15:59 Heparin Sodium (Porcine) (Heparin Sq 5000 Unit/0.5ml) 5,000 unit Q12H SQ 12/31/17 20:00 01/30/18 19:59 Albuterol/ Ipratropium (Duoneb) 3 ml Q6R INH 12/31/17 16:00 01/30/18 15:59 01/03/18 06:55 3 ML Albuterol Sulfate (Ventolin 0.083% 2.5MG/3ML Neb) 2.5 mg Q4H PRN INH 12/31/17 16:00 01/30/18 15:59 Metronidazole 500 mg/Prmx 100 ml @ 100 mls/hr Q8H IV 12/31/17 18:00 01/07/18 17:59 01/03/18 10:55 100 MLS/HR Levofloxacin (Consult) 1 ea UD PRN N/A 12/31/17 17:30 01/30/18 17:29 Codeine Phosphate/ Guaifenesin (Robitussin-AC Sugar Free Syrup) 5 ml Q6H PRN PO 01/02/18 03:00 02/01/18 02:59 01/02/18 21:20 5 ML Levofloxacin 750 mg/Prmx 150 ml @ 100 mls/hr Q48H IV 01/03/18 12:00 01/04/18 11:59
[2018-01-03] MEDS ORDERED: LEVO1TAB33 PO (11:41)
[2018-01-03] MEDS ORDERED: IPRA-64 INH (11:41)
[2018-01-03] MEDS ORDERED: AMOX875T PO (11:41)
[2018-01-03] MEDS ORDERED: LEVOFLOXACIN / D5W 750 MG in PREMIXED IN D5W 150 ML IV SCH (12:00)
--- NOTE | 2018-01-03 12:20 | Discharge Instructions ---
Discharge Instructions Date of Service Jan 03, 2018. Admission Reason for Admission: Aspiration Pneumonitis,Pneumonia Discharge Discharge Diagnosis / Problem: PNEUMONIA Discharge Goals Goal(s): Diagnostic testing, Therapeutic intervention Activity Recommendations Activity Limitations: as noted below (NO HEAVY EXERTION UNTIL RE-EVALUATED BY PRIMARY CARE PHYSICIAN) Lifting Limitations: until after follow-up appointment Exercise/Sports Limitations: until after follow-up appointment . Instructions / Follow-Up Instructions / Follow-Up PLEASE REFER TO YOUR NEW MEDICATION LIST AND FOLLOW INSTRUCTIONS CAREFULLY. PLEASE CALL YOUR PRIMARY CARE PHYSICIAN OR RETURN TO ER IMMEDIATELY IF WITH RECURRENCE OF SYMPTOMS. FOLLOW UP WITH DR. TEZ ECHEVERRIA (ASSOCIATE OF DR. CHRISTENSEN) ON Friday01/06/18 AT 10 :05AM. Current Hospital Diet Patient's current hospital diet: AHA Diet (Heart Healthy) Discharge Diet Recommended Diet: AHA Diet (Heart Healthy) Procedures Procedures Performed: CHEST XRAY Pending Studies Studies pending at discharge: no Medical Emergencies . Who to Call and When: Medical Emergencies: If at any time you feel your situation is an emergency, please call 911 immediately. . Non-Emergent Contact Non-Emergency issues call your: Primary Care Provider Call Non-Emergent contact if: you have a fever, you have any medication questions . . "Provider Documentation" section prepared by Hugo Zimmerman. .
--- NOTE | 2018-01-03 12:24 | Discharge Summary ---
Discharge Summary Date of Service Jan 03, 2018. Discharge Summary Admission Date: Dec 31, 2017 at 15:55 Discharge Date: Jan 03, 2018 Discharge Disposition: Home Principal Diagnosis: PNEUMONIA, POSSIBLE COMMUNITY ACQUIRED VS. ASPIRATION Secondary Diagnoses/Problems: Please refer to hospital course below. Procedures: SINGLE VIEW CHEST CLINICAL HISTORY: Dyspnea. FINDINGS: An AP, portable, upright chest radiograph is compared to study dated 10/11/2016. The examination is degraded by portable technique and patient rotation. The heart is top normal for projection and there is atherosclerotic calcification of the thoracic aorta. Chronic interstitial thickening is similar to previous. There are left basilar opacities and a small left pleural effusion. The right lung is grossly clear. No pneumothorax is seen. The skeletal structures are osteopenic. The bony thorax is grossly intact. Degenerative change is noted in the shoulders and thoracic spine. IMPRESSION: There are left basilar opacities and a small left pleural effusion. This could represent atelectasis versus pneumonia/aspiration pneumonitis. Clinical correlation will be required and radiographic follow-up to resolution is recommended. Electronically signed by: Duncan lBair M.D. 12/31/2017 3:15 PM Pending Studies/Follow-Up: Please refer to hospital course below. Medication Reconciliation New Medications: Amoxicillin & Pot Clavulanate (Augmentin 875-125 mg) 1 Tab Tab 875 MG PO BID for 4 Days, #8 TAB 0 Refills Ipratropium-Albuterol (Duoneb) 3 Ml Nebu 3 ML INH BID for 5 Days, #60 ML 2 Refills may also use q4h prn for shortness of breath/wheezing Changed Medications: Levofloxacin (Levaquin) 500 Mg Tab 500 MG PO DAILY for 1 Day (Changed from: 7) take on 01/04/2018 Continued Medications: Acetaminophen (Tylenol) 500 Mg Tab 500 MG PO PRN UD, TAB Quiro-J-Cvamiqynclrds (Gas-X Prevention) 1 Cap Cap 1 CAP PO PRN for GAS Calcium Carbonate (Antacid) (Tums Ultra 1000) 1,000 Mg Chw 1000 MG PO TID PRN for ACID REFLUX Felodipine (Plendil) 10 Mg Tabcr 10 MG PO DAILY, TAB Losartan Potassium (Cozaar) 50 Mg Tab 100 MG PO DAILY, TAB Ranitidine (Zantac) 150 Mg Tab 150 MG PO BID, TAB Sertraline (Zoloft) 25 Mg Tab 25 MG PO QPM, TAB Discontinued Medications: Albuterol (Ventolin Hfa) 60 Puffs/5400 Mcg Aers 2 PUFFS INH Q4 PRN for Shortness of Breath Admission Information HPI (per Admitting provider): 87 y/o F Hx HTN, GERD. Pt states she began to feel congested and weak approximately one week ago. She visited her MD 3 days prior and was placed on Levaquin. She has had 2 doses, however, she felt her symptoms were worsening. She was directed to attend the ER. She admits to a persistent productive cough and a generally ill feeling. She denies CP, significant SOB or fevers. An initial CXR in the ER demonstrates a LLL PNM. The pt was mildly hypoxic and afebrile on arrival to the ER. Physical Exam (per Admitting): General Appearance: + pertinent finding (Pleasant, anxious, elderly female - no distress) Head: normocephalic Eyes: normal inspection ENT: normal ENT inspection, pharynx normal Neck: supple, no JVD Respiratory/Chest: chest non-tender, + pertinent finding (Crackles at L base ) Cardiovascular: regular rate, rhythm, no gallop, normal peripheral pulses Abdomen/GI: normal bowel sounds, non tender, soft Back: normal inspection, no CVA tenderness Extremities/Musculoskelatal: normal inspection, no calf tenderness Neurologic/Psych: egg separator II-XII nml as tested, no motor/sensory deficits, alert , oriented x 3 Skin: normal color Hospital Course 87 y/o F Hx HTN, GERD. Pt states she began to feel congested and weak approximately one week ago. She visited her MD 3 days prior and was placed on Levaquin. She has had 2 doses, however, she felt her symptoms were worsening. She was directed to attend the ER. She admits to a persistent productive cough and a generally ill feeling. She denies CP, significant SOB or fevers. An initial CXR in the ER demonstrates a LLL PNM. The pt was mildly hypoxic and afebrile on arrival to the ER. 1) PNEUMONIA, POSSIBLE COMMUNITY ACQUIRED VS. ASPIRATION - placed on Levaquin + Flagyl IV x 4 days Nebs q6h - Speech Therapy Eval: no overt aspiration noted - patient gradually improved - discharge plan: Levaquin 750mg po x 1 more day on Friday 01/05 Augmentin x 3 more days Nebs BID and q4h PRN, until re-eval by PCP - 2 step exercise test: (+) need for supplemental oxygen wean off accordingly 2) HTN - cont Plendil, Losartan 3) Anxiety - cont Sertraline 4) GERD - Protonix scheduled for EGD in 2 days, needs to be cancelled ff up with PCP in 3-5 days- details in d/c instructions Total time spent on discharge = 40 minutes This includes examination of the patient, discharge planning, medication reconciliation, and communication with other providers. Discharge Instructions Discharge Instructions Date of Service Jan 03, 2018. Admission Reason for Admission: Aspiration Pneumonitis,Pneumonia Discharge Discharge Diagnosis / Problem: PNEUMONIA Discharge Goals Goal(s): Diagnostic testing, Therapeutic intervention Activity Recommendations Activity Limitations: as noted below (NO HEAVY EXERTION UNTIL RE-EVALUATED BY PRIMARY CARE PHYSICIAN) Lifting Limitations: until after follow-up appointment Exercise/Sports Limitations: until after follow-up appointment . Instructions / Follow-Up Instructions / Follow-Up PLEASE REFER TO YOUR NEW MEDICATION LIST AND FOLLOW INSTRUCTIONS CAREFULLY. PLEASE CALL YOUR PRIMARY CARE PHYSICIAN OR RETURN TO ER IMMEDIATELY IF WITH RECURRENCE OF SYMPTOMS. FOLLOW UP WITH DR. TEZ ECHEVERRIA (ASSOCIATE OF DR. CHRISTENSEN) ON Friday01/06/18 AT 10 :05AM. Current Hospital Diet Patient's current hospital diet: AHA Diet (Heart Healthy) Discharge Diet Recommended Diet: AHA Diet (Heart Healthy) Procedures Procedures Performed: CHEST XRAY Pending Studies Studies pending at discharge: no Medical Emergencies . Who to Call and When: Medical Emergencies: If at any time you feel your situation is an emergency, please call 911 immediately. . Non-Emergent Contact Non-Emergency issues call your: Primary Care Provider Call Non-Emergent contact if: you have a fever, you have any medication questions . . "Provider Documentation" section prepared by Hugo Zimmerman. .
== END 2018-01-03 15:37 | disposition home health service (06) | DRG 179 ==
LOC: C.EDB 14:24 → C.4E 15:55 → ENRESERV 16:12
PROVIDERS: ADMIT Internal Medicine; ATTEND Internal Medicine
DX: J69.0 Pneumonitis due to inhalation of food and vomit (principal); R09.02 Hypoxemia; I10 Essential (primary) hypertension; K21.9 Gastro-esophageal reflux disease without esophagitis; F41.9 Anxiety disorder, unspecified; Z87.891 Personal history of nicotine dependence; Z79.899 Other long term (current) drug therapy; Z88.7 Allergy status to serum and vaccine; Z88.8 Allergy status to other drugs, medicaments and biological substances